=== PATIENT | female | born 1960 | race Caucasian/White ===

== ENCOUNTER 2018-04-19 21:04 | Emergency (ER) | payer OTHER, MEDICARE ==
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
[2018-04-19 21:56] LABS: ANION GAP 11.8; CHLORIDE,CL 102 mmol/L (101-111); SODIUM,NA 139 mmol/L (135-145)
[2018-04-19] MEDS: diphenhydrAMINE 50 MG/ML SDV IVPUSH ONE (21:56)
[2018-04-19] MEDS: HYDROmorphone 1 MG/ML Syringe IVPUSH ONE (21:59)
[2018-04-19] MEDS: Promethazine 25 MG/ML SDV IM ONE (22:01)
[2018-04-19] MEDS: Sodium Chloride 0.9% 1,000 ML IV ONE (22:01)
[2018-04-19 23:28] VITALS: BP 125/82
== END 2018-04-19 23:21 | disposition home or self-care (01) ==
LOC: DL.ED 21:04
DX: G43.909 Migraine, unspecified, not intractable, without status migrainosus (principal); F43.10 Post-traumatic stress disorder, unspecified; Z88.5 Allergy status to narcotic agent; Z79.899 Other long term (current) drug therapy; Z72.820 Sleep deprivation; Z88.8 Allergy status to other drugs, medicaments and biological substances
CPT/HCPCS: 36415; 80053; 85025; 96361; 96372; 96374; 96375; 99283; J1170; J1200; J2550; J7030

== ENCOUNTER 2018-05-04 21:11 | Emergency (ER) | payer OTHER, MEDICARE ==
[2018-05-04 22:31] VITALS: BP 105/62
[2018-05-04] MEDS ORDERED: Promethazine 25 MG/ML SDV IM ONE (23:30)
[2018-05-04] MEDS ORDERED: Ketorolac 30 MG/ML SDV IVPUSH ONE (23:30)
[2018-05-04] MEDS ORDERED: Sodium Chloride 0.9% 1,000 ML IV ONE (23:30)
[2018-05-04] MEDS ORDERED: diphenhydrAMINE 50 MG/ML SDV IVPUSH ONE (23:30)
[2018-05-05] MEDS ORDERED: HYDROmorphone 1 MG/ML Syringe IVPUSH ONE (00:13)
[2018-05-05] MEDS ORDERED: HYDROmorphone 0.5 MG/0.5 ML Syringe ONE (00:23)
--- NOTE | 2018-05-05 00:49 | EDM.PDOC ---
ED HPI GENERAL MEDICAL PROBLEM - General Chief Complaint: Headache Stated Complaint: MIGRAINE, NOT SLEEPING [id number] Time Seen by Provider: 05/04/18 23:24 Source of Information: Reports: Patient History Limitations: Reports: No Limitations - History of Present Illness INITIAL COMMENTS - FREE TEXT/NARRATIVE: headache past 3 days, hasn't slept. Similar to previous migraines. States tried benadryl for sleep but didnt help. last dose 2-3 days ago. Long standing hx migraines since age 20. Has been seen by neurology. Receives Botox for headache , Due 05/29. Reports they increase towards time of next shot. Nausea, pain behind left eye. No blurring of vision, light and sound sensitive. 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(s) Left Anterior Frontal Headache Pain Score (Numeric/FACES): 10 - Related Data Allergies Allergy/AdvReac Type Severity Reaction Status Date / Time codeine Allergy Delusions Verified 05/04/18 22:21 sumatriptan [From Imitrex] Allergy Other Verified 05/04/18 22:21 sumatriptan succinate Allergy Other Verified 05/04/18 22:21 [From Imitrex] topiramate Allergy Other Verified 05/04/18 22:21 Home Meds: Home Meds ClonazePAM [KlonoPIN] 1 mg PO DAILY 08/28/15 [History] DULoxetine [Cymbalta] 60 mg PO DAILY 08/28/15 [History] Gabapentin [Neurontin] 300 mg PO TID 08/28/15 [History] Hydrocodone/Acetaminophen [Hydrocodon-Acetaminophn 10-325] 1 tab PO Q8HR PRN [History] fentaNYL [Duragesic] 75 mcg TRDERM ASDIRECTED 08/28/15 [History] traZODone 150 mg PO BEDTIME 08/28/15 [History] Cyanocobalamin (Vitamin B-12) [Cyanocobalamin Injection] 1,000 mcg INJECT ASDIRECTED 08/29/15 [History] Loratadine 10 mg PO DAILY 08/29/15 [History] PARoxetine [Paxil] 20 mg PO DAILY 08/29/15 [History] Promethazine [Phenergan] 25 mg PO Q6HR PRN 08/29/15 [History] Sennosides/Docusate Sodium [Senna S Tablet] 4 tab PO DAILY 08/29/15 [History] Past Medical History HEENT History: Reports: Impaired Vision Respiratory History: Reports: Other (See Below) Other Respiratory History: Night hypoxia. She is on a continuous O2 at 3 LPM via [place] Musculoskeletal History: Reports: Back Pain, Chronic Neurological History: Reports: Cerebral Aneurysms, Migraines Psychiatric History: Reports: Anxiety, Depression, PTSD - Past Surgical History Musculoskeletal Surgical History: Reports: Shoulder Surgery Social & Family History - Family History Family Medical History: Noncontributory - Tobacco Use Smoking Status *Q: Current Every Day Smoker Years of Tobacco use: 43 Packs/Tins Daily: 0.5 Used Tobacco, but Quit: No Second Hand Smoke Exposure: Yes - Caffeine Use Caffeine Use: Reports: Soda - Recreational Drug Use Recreational Drug Use: No ED ROS GENERAL - Review of Systems Review Of Systems: ROS reveals no pertinent complaints other than HPI. - Physical Exam Exam: See Below Exam Limited By: No Limitations General Appearance: Alert, Mild Distress Eye Exam: Bilateral Eye: EOMI, PERRL Ears: Normal External Exam, Hearing Loss (bilateral hearing aids) Nose: Normal Inspection Throat/Mouth: Normal Inspection, Normal Lips, Normal Gums Head Exam: Atraumatic, Normocephalic Neck: Normal Inspection Respiratory/Chest: No Respiratory Distress, Lungs Clear, Normal Breath Sounds Cardiovascular: Normal Peripheral Pulses, Regular Rate, Rhythm GI/Abdominal: Normal Bowel Sounds, Soft, Non-Tender, No Organomegaly Neuro Exam (Abbreviated): Alert, Oriented, Normal Cognition, Normal Gait, Normal Reflexes, No Motor/Sensory Deficits Back Exam: Normal Inspection Extremities: Normal Inspection Psychiatric: Normal Affect Skin Exam: Warm, Dry, Normal Color Course - Vital Signs Last Recorded V/S: Last Vital Signs Temp 98.2 F 05/04/18 22:27 Pulse 114 H 05/04/18 22:27 Resp 18 05/04/18 22:27 BP 105/62 05/04/18 22:27 Pulse Ox 94 L 05/04/18 22:27 - Orders/Labs/Meds Meds: Medications Discontinued Medications Generic Name Dose Route Start Last Admin Trade Name Freq PRN Reason Stop Dose Admin Diphenhydramine HCl 25 mg 05/04/18 23:30 05/04/18 23:48 Benadryl IVPUSH 05/04/18 23:31 25 mg ONETIME ONE Administration Hydromorphone HCl 1 mg 05/05/18 00:13 05/05/18 00:26 Dilaudid IVPUSH 05/05/18 00:14 1 mg ONETIME ONE Administration Hydromorphone HCl Confirm 05/05/18 00:23 05/05/18 00:28 Dilaudid Administered 05/05/18 00:24 Not Given Dose 1 mg .ROUTE .STK-MED ONE Sodium Chloride 1,000 mls @ 999 mls/hr 05/04/18 23:30 05/04/18 23:44 Normal Saline IV 05/05/18 00:30 999 mls/hr .BOLUS ONE Administration Ketorolac Tromethamine 30 mg 05/04/18 23:30 05/04/18 23:42 Toradol IVPUSH 05/04/18 23:31 30 mg ONETIME ONE Administration Promethazine HCl 25 mg 05/04/18 23:30 05/04/18 23:46 Phenergan IM 05/04/18 23:31 25 mg ONETIME ONE Administration Departure - Departure Time of Disposition: 00:42 Disposition: Home, Self-Care 01 Condition: Good Clinical Impression: Migraine, PTSD (post-traumatic stress disorder) - Discharge Information *PRESCRIPTION DRUG MONITORING PROGRAM REVIEWED*: Yes *COPY OF PRESCRIPTION DRUG MONITORING REPORT IN PATIENT BARRY: Yes Instructions: Migraine Headache, [id number] Additional Instructions: rest follow up with primary care this week
== END 2018-05-05 00:55 | disposition home or self-care (01) ==
LOC: DL.ED 21:11
DX: G43.909 Migraine, unspecified, not intractable, without status migrainosus (principal); F43.10 Post-traumatic stress disorder, unspecified; Z79.899 Other long term (current) drug therapy; F17.210 Nicotine dependence, cigarettes, uncomplicated; Z88.5 Allergy status to narcotic agent
CPT/HCPCS: 96361; 96372; 96374; 96375; 99282; 99283; J1170; J1200; J1885; J2550; J7030

== ENCOUNTER 2018-11-16 21:02 | Emergency (ER) | payer OTHER, MEDICARE ==
[2018-11-16 21:37] VITALS: BP 114/57
--- NOTE | 2018-11-16 21:44 | EDM.PDOC ---
ED HPI GENERAL MEDICAL PROBLEM - General Chief Complaint: Headache Stated Complaint: MIGRAINE [id number] Time Seen by Provider: 11/16/18 21:44 Source of Information: Reports: Patient - History of Present Illness INITIAL COMMENTS - FREE TEXT/NARRATIVE: Pt to ER with c/o migraine headache. Patient states this is the 7th day she has had the headache. She states she generally uses hydrocodone for the headaches and this has not been helping. Patient denies N/V/D, fever or chills, cough. She states this headache is not different than her usual headaches, only the fact that she cannot get it to go away. Patient states she recently returned from [place] where she had been for a month. She feels the climate change is to blame for the headache. Patient denies feeling as if she wants to hurt herself, as reported by [place] [facility]. 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 Medication(s) (hydrocodone) - Related Data Allergies Allergy/AdvReac Type Severity Reaction Status Date / Time codeine Allergy Delusions Verified 11/16/18 21:17 sumatriptan [From Imitrex] Allergy Other Verified 11/16/18 21:17 sumatriptan succinate Allergy Other Verified 11/16/18 21:17 [From Imitrex] topiramate Allergy Other Verified 11/16/18 21:17 Home Meds: Home Meds ClonazePAM [KlonoPIN] 1 mg PO BID 08/28/15 [History] Gabapentin [Neurontin] 300 mg PO TID 08/28/15 [History] Hydrocodone/Acetaminophen [Hydrocodon-Acetaminophn 10-325] 1 tab PO Q8HR PRN [History] traZODone 300 mg PO BEDTIME 08/28/15 [History] Loratadine 10 mg PO DAILY 08/29/15 [History] Promethazine [Phenergan] 25 mg PO Q6HR PRN 08/29/15 [History] Sennosides/Docusate Sodium [Senna S Tablet] 4 tab PO DAILY 08/29/15 [History] Albuterol Sulfate [Proair Hfa] 2 puff INH Q4H PRN 11/16/18 [History] DULoxetine [Cymbalta] 60 mg PO DAILY 11/16/18 [History] Polyethylene Glycol 3350 [MiraLAX] 17 gram PO DAILY PRN 11/16/18 [History] QUEtiapine Fumarate [Quetiapine Fumarate ER] 200 mg PO BEDTIME 11/16/18 [History ] Tolterodine [Detrol] 2 mg PO DAILY 11/16/18 [History] Past Medical History HEENT History: Reports: Impaired Vision Respiratory History: Reports: Other (See Below) Other Respiratory History: Night hypoxia. She is on a continuous O2 at 3 LPM via [place] Musculoskeletal History: Reports: Back Pain, Chronic Neurological History: Reports: Cerebral Aneurysms, Migraines Psychiatric History: Reports: Anxiety, Depression, PTSD - Past Surgical History Musculoskeletal Surgical History: Reports: Shoulder Surgery Social & Family History - Family History Family Medical History: Noncontributory - Caffeine Use Caffeine Use: Reports: Soda ED ROS GENERAL - Review of Systems Review Of Systems: ROS reveals no pertinent complaints other than HPI. - Physical Exam Exam: See Below Exam Limited By: No Limitations General Appearance: Alert, WD/WN, Mild Distress Eye Exam: Bilateral Eye: EOMI, Normal Inspection Ears: Normal External Exam, Hearing Grossly Normal Nose: Normal Inspection Throat/Mouth: Normal Inspection, Normal Voice, No Airway Compromise Head Exam: Atraumatic, Normocephalic Neck: Normal Inspection, Supple, Non-Tender, Full Range of Motion Respiratory/Chest: No Respiratory Distress, Lungs Clear, Normal Breath Sounds, No Accessory Muscle Use, Chest Non-Tender Cardiovascular: Normal Peripheral Pulses, Regular Rate, Rhythm, No Edema, No Gallop, No JVD, No Murmur, No Rub GI/Abdominal: Normal Bowel Sounds, Soft, Non-Tender (Female) Exam: Deferred Rectal (Female) Exam: Deferred Neuro Exam (Abbreviated): Alert, Oriented, CN II-XII Intact, Normal Cognition, Normal Gait, Normal Reflexes, No Motor/Sensory Deficits Back Exam: Normal Inspection, Full Range of Motion, NT Extremities: Normal Inspection, Normal Range of Motion, Non-Tender, No Pedal Edema, Normal Capillary Refill Psychiatric: Normal Mood, Flat Affect Skin Exam: Warm, Dry, Intact, Normal Color, No Rash Course - Vital Signs Last Recorded V/S: Last Vital Signs Temp 98.2 F 11/16/18 21:15 Pulse 121 H 11/16/18 21:15 Resp 16 11/16/18 21:15 BP 114/57 L 11/16/18 21:15 Pulse Ox 95 11/16/18 21:15 - Orders/Labs/Meds Meds: Medications Discontinued Medications Generic Name Dose Route Start Last Admin Trade Name Joyce PRN Reason Stop Dose Admin Hydromorphone HCl 1 mg 11/16/18 21:51 11/16/18 22:08 Dilaudid IM 11/16/18 21:52 1 mg ONETIME ONE Administration Ondansetron HCl 4 mg 11/16/18 21:51 11/16/18 22:08 Zofran Odt PO 11/16/18 21:52 4 mg ONETIME ONE Administration - Re-Assessments/Exams Free Text/Narrative Re-Assessment/Exam: 11/16/18 23:12 Patient states her headache is starting to improve and she would like to go home and rest. Patient was discharged home. Departure - Departure Time of Disposition: 22:34 Disposition: Home, Self-Care 01 Condition: Fair Clinical Impression: Migraine, PTSD (post-traumatic stress disorder) - Discharge Information *PRESCRIPTION DRUG MONITORING PROGRAM REVIEWED*: No *COPY OF PRESCRIPTION DRUG MONITORING REPORT IN PATIENT BARRY: No Instructions: Migraine Headache, [id number] Forms: ED Department Discharge Additional Instructions: Drink plenty of fluids Rest in a dark room Follow up with your primary care facility
[2018-11-16] MEDS ORDERED: HYDROmorphone 1 MG/ML Syringe IM ONE (21:51)
[2018-11-16] MEDS ORDERED: Ondansetron 4 MG Tab.DIS PO ONE (21:51)
== END 2018-11-16 22:38 | disposition home or self-care (01) ==
LOC: DL.ED 21:02
DX: G43.909 Migraine, unspecified, not intractable, without status migrainosus (principal); F41.9 Anxiety disorder, unspecified; F32.9 Major depressive disorder, single episode, unspecified; F43.10 Post-traumatic stress disorder, unspecified; Z88.5 Allergy status to narcotic agent; Z88.8 Allergy status to other drugs, medicaments and biological substances; Z79.899 Other long term (current) drug therapy
CPT/HCPCS: 96372; 99283; A9270; J1170

== ENCOUNTER 2018-11-24 20:23 | Emergency (ER) | payer MEDICARE, OTHER ==
[2018-11-24 20:32] VITALS: BP 167/88
[2018-11-24] MEDS ORDERED: HYDROmorphone 1 MG/ML Syringe IVPUSH ONE (20:44)
[2018-11-24] MEDS ORDERED: Sodium Chloride 0.9% 1,000 ML IV ONE (20:44)
[2018-11-24] MEDS ORDERED: Ondansetron 4 MG/2 ML SDV IV ONE (20:44)
--- NOTE | 2018-11-24 21:27 | EDM.PDOC ---
ED HPI GENERAL MEDICAL PROBLEM - General Chief Complaint: Headache Stated Complaint: MIRGRAINE Time Seen by Provider: 11/24/18 20:30 Source of Information: Reports: Patient, RN Notes Reviewed History Limitations: Reports: No Limitations - History of Present Illness INITIAL COMMENTS - FREE TEXT/NARRATIVE: C/o migraine headache above left eye, same as usual. Started this am while receiving botox injection. Slight nausea. No vomiting. Tried hydrocodone without improvement. Light sensitive. No blurring of vision, No weakness. Headache Pain Score (Numeric/FACES): 9 - Related Data Allergies Allergy/AdvReac Type Severity Reaction Status Date / Time codeine Allergy Delusions Verified 11/24/18 20:32 sumatriptan [From Imitrex] Allergy Other Verified 11/24/18 20:32 sumatriptan succinate Allergy Other Verified 11/24/18 20:32 [From Imitrex] topiramate Allergy Other Verified 11/24/18 20:32 Home Meds: Home Meds ClonazePAM [KlonoPIN] 1 mg PO BID 08/28/15 [History] Gabapentin [Neurontin] 300 mg PO TID 08/28/15 [History] Hydrocodone/Acetaminophen [Hydrocodon-Acetaminophn 10-325] 1 tab PO Q8HR PRN [History] traZODone 300 mg PO BEDTIME 08/28/15 [History] Loratadine 10 mg PO DAILY 08/29/15 [History] Promethazine [Phenergan] 25 mg PO Q6HR PRN 08/29/15 [History] Sennosides/Docusate Sodium [Senna S Tablet] 4 tab PO DAILY 08/29/15 [History] Albuterol Sulfate [Proair Hfa] 2 puff INH Q4H PRN 11/16/18 [History] DULoxetine [Cymbalta] 60 mg PO DAILY 11/16/18 [History] Polyethylene Glycol 3350 [MiraLAX] 17 gram PO DAILY PRN 11/16/18 [History] QUEtiapine Fumarate [Quetiapine Fumarate ER] 200 mg PO BEDTIME 11/16/18 [History ] Tolterodine [Detrol] 2 mg PO DAILY 11/16/18 [History] Past Medical History HEENT History: Reports: Impaired Vision Respiratory History: Reports: Other (See Below) Other Respiratory History: Night hypoxia. She is on a continuous O2 at 3 LPM via [place] Musculoskeletal History: Reports: Back Pain, Chronic Neurological History: Reports: Cerebral Aneurysms, Migraines Psychiatric History: Reports: Anxiety, Depression, PTSD - Past Surgical History Musculoskeletal Surgical History: Reports: Shoulder Surgery Social & Family History - Family History Family Medical History: Noncontributory - Tobacco Use Smoking Status *Q: Former Smoker Used Tobacco, but Quit: Yes Month/Year Tobacco Last Used: 08/2018 Second Hand Smoke Exposure: Yes - Caffeine Use Caffeine Use: Reports: None - Recreational Drug Use Recreational Drug Use: No ED ROS GENERAL - Review of Systems Review Of Systems: ROS reveals no pertinent complaints other than HPI. - Physical Exam Exam: See Below Exam Limited By: No Limitations General Appearance: Alert, Mild Distress, Obese Eye Exam: Bilateral Eye: EOMI, Normal Fundi, PERRL Ears: Hearing Loss, Other (bilateral hearing aides, moderate cerumen right ear. ) Nose: Normal Inspection Throat/Mouth: Normal Voice, Other (dry mucus membranes) Head Exam: Atraumatic, Normocephalic Neck: Normal Inspection, Full Range of Motion Respiratory/Chest: No Respiratory Distress Cardiovascular: Normal Peripheral Pulses, Regular Rate, Rhythm GI/Abdominal: Normal Bowel Sounds, Soft Neuro Exam (Abbreviated): Alert, Oriented, CN II-XII Intact, Normal Cognition, No Motor/Sensory Deficits Extremities: Normal Inspection Psychiatric: Normal Affect, Normal Mood Skin Exam: Warm, Dry, Intact, Pallor Course - Vital Signs Last Recorded V/S: Last Vital Signs Temp 97.9 F 11/24/18 20:27 Pulse 104 H 11/24/18 20:27 Resp 17 11/24/18 20:27 BP 167/88 H 11/24/18 20:27 Pulse Ox 94 L 11/24/18 20:27 - Orders/Labs/Meds Orders: Active Orders 24 hr Category Date Time Status Sodium Chloride 0.9% [Normal Saline] 1,000 ml Med 11/24/18 20:44 Active IV .BOLUS Medication Orders Sodium Chloride (Normal Saline) 1,000 mls @ 999 mls/hr IV .BOLUS ONE Stop: 11/24/18 21:44 Last Admin: 11/24/18 20:52 Dose: 999 mls/hr Meds: Medications Generic Name Dose Route Start Last Admin Trade Name Freq PRN Reason Stop Dose Admin Sodium Chloride 1,000 mls @ 999 mls/hr 11/24/18 20:44 11/24/18 20:52 Normal Saline IV 11/24/18 21:44 999 mls/hr .BOLUS ONE Administration Discontinued Medications Generic Name Dose Route Start Last Admin Trade Name Joyce PRN Reason Stop Dose Admin Hydromorphone HCl 1 mg 11/24/18 20:44 11/24/18 20:52 Dilaudid IVPUSH 11/24/18 20:45 1 mg ONETIME ONE Administration Ondansetron HCl 4 mg 11/24/18 20:44 11/24/18 20:52 Zofran IV 11/24/18 20:45 4 mg ONETIME ONE Administration Departure - Departure Time of Disposition: 21:23 Disposition: Home, Self-Care 01 Condition: Good Clinical Impression: Migraine - Discharge Information *PRESCRIPTION DRUG MONITORING PROGRAM REVIEWED*: Not Applicable *COPY OF PRESCRIPTION DRUG MONITORING REPORT IN PATIENT BARRY: Not Applicable Instructions: Migraine Headache, [id number] Forms: ED Department Discharge Additional Instructions: rest increase fluids follow up as needed home medications as ordered by primary care provider - My Orders Last 24 Hours: My Active Orders 11/24/18 20:44 Sodium Chloride 0.9% [Normal Saline] 1,000 ml IV .BOLUS - Assessment/Plan Last 24 Hours: My Active Orders 11/24/18 20:44 Sodium Chloride 0.9% [Normal Saline] 1,000 ml IV .BOLUS
== END 2018-11-24 21:30 | disposition home or self-care (01) ==
LOC: DL.ED 20:23
DX: G43.909 Migraine, unspecified, not intractable, without status migrainosus (principal); F41.9 Anxiety disorder, unspecified; F32.9 Major depressive disorder, single episode, unspecified; Z79.899 Other long term (current) drug therapy; Z88.5 Allergy status to narcotic agent; Z88.8 Allergy status to other drugs, medicaments and biological substances; Z87.891 Personal history of nicotine dependence
CPT/HCPCS: 96361; 96374; 96375; 99282-25; J1170; J2405; J7030

== ENCOUNTER 2018-11-29 19:59 | Emergency (ER) | payer MEDICARE, OTHER ==
[2018-11-29 20:07] VITALS: BP 117/72; PULSE 115
[2018-11-29] MEDS ORDERED: Ondansetron 4 MG/2 ML SDV IV ONE (20:30)
[2018-11-29] MEDS ORDERED: Famotidine 20 MG/2 ML SDV IVPUSH ONE (20:30)
[2018-11-29] MEDS ORDERED: Sodium Chloride 0.9% 1,000 ML IV ONE (20:30)
[2018-11-29] MEDS ORDERED: HYDROmorphone 1 MG/ML Syringe IVPUSH ONE (20:34)
[2018-11-29 21:15] LABS: ANION GAP 12.3; CHLORIDE,CL 105 mmol/L (101-111); SODIUM,NA 137 mmol/L (135-145)
--- NOTE | 2018-11-29 21:36 | EDM.PDOC ---
ED HPI GENERAL MEDICAL PROBLEM - General Chief Complaint: Headache Stated Complaint: MIGRAINE, STOMACH PAINS Time Seen by Provider: 11/29/18 20:15 Source of Information: Reports: Patient History Limitations: Reports: No Limitations - History of Present Illness INITIAL COMMENTS - FREE TEXT/NARRATIVE: ED with c/o migraine headache. Onset on awakening this am. yesterday, multiple diarrhea stools and some nausea. Limited oral intake yesterday,tolerating small amounts today. Headache usual for migraine behing, right eye. Sensitive to light. Stated unsure if took hydrocodone so did not want to take additional. Seen at [facility] today and told to go home and rest. Frontal Headache Pain Score (Numeric/FACES): 8 - Related Data Allergies Allergy/AdvReac Type Severity Reaction Status Date / Time codeine Allergy Delusions Verified 11/29/18 20:11 sumatriptan [From Imitrex] Allergy Other Verified 11/29/18 20:11 sumatriptan succinate Allergy Other Verified 11/29/18 20:11 [From Imitrex] topiramate Allergy Other Verified 11/29/18 20:11 Home Meds: Home Meds ClonazePAM [KlonoPIN] 1 mg PO BID 08/28/15 [History] Gabapentin [Neurontin] 300 mg PO TID 08/28/15 [History] Hydrocodone/Acetaminophen [Hydrocodon-Acetaminophn 10-325] 1 tab PO Q8HR PRN [History] traZODone 300 mg PO BEDTIME 08/28/15 [History] Loratadine 10 mg PO DAILY 08/29/15 [History] Promethazine [Phenergan] 25 mg PO Q6HR PRN 08/29/15 [History] Sennosides/Docusate Sodium [Senna S Tablet] 4 tab PO DAILY 08/29/15 [History] Albuterol Sulfate [Proair Hfa] 2 puff INH Q4H PRN 11/16/18 [History] DULoxetine [Cymbalta] 60 mg PO DAILY 11/16/18 [History] Polyethylene Glycol 3350 [MiraLAX] 17 gram PO DAILY PRN 11/16/18 [History] QUEtiapine Fumarate [Quetiapine Fumarate ER] 200 mg PO BEDTIME 11/16/18 [History ] Tolterodine [Detrol] 2 mg PO DAILY 11/16/18 [History] Past Medical History HEENT History: Reports: Impaired Vision Respiratory History: Reports: Other (See Below) Other Respiratory History: Night hypoxia. She is on a continuous O2 at 3 LPM via [place] Musculoskeletal History: Reports: Back Pain, Chronic Neurological History: Reports: Cerebral Aneurysms, Migraines Psychiatric History: Reports: Anxiety, Depression, PTSD - Past Surgical History Musculoskeletal Surgical History: Reports: Shoulder Surgery Social & Family History - Family History Family Medical History: Noncontributory - Tobacco Use Years of Tobacco use: 40 - Caffeine Use Caffeine Use: Reports: None ED ROS GENERAL - Review of Systems Review Of Systems: ROS reveals no pertinent complaints other than HPI. - Physical Exam Exam: See Below Exam Limited By: No Limitations General Appearance: Alert, Mild Distress, Obese Eye Exam: Bilateral Eye: EOMI, PERRL Ears: Normal External Exam, Normal TMs, Hearing Loss (bilateral hearing aids) Nose: Normal Inspection Throat/Mouth: Normal Inspection Head Exam: Atraumatic, Normocephalic Neck: Normal Inspection, Full Range of Motion Respiratory/Chest: No Respiratory Distress, Lungs Clear, Normal Breath Sounds Cardiovascular: Regular Rate, Rhythm GI/Abdominal: Normal Bowel Sounds, Soft, Non-Tender Neuro Exam (Abbreviated): Alert, Oriented, CN II-XII Intact, Normal Cognition Extremities: Normal Inspection Psychiatric: Flat Affect Skin Exam: Warm, Dry, Intact, Pallor Course - Vital Signs Last Recorded V/S: Last Vital Signs Temp 98.2 F 11/29/18 20:05 Pulse 115 H 11/29/18 20:05 Resp 18 11/29/18 20:05 BP 117/72 11/29/18 20:05 Pulse Ox 96 11/29/18 20:05 - Orders/Labs/Meds Labs: Laboratory Tests 11/29/18 11/29/18 Range/Units 20:20 20:20 WBC 10.1 H (5.0-10.0) 10^3/uL RBC 4.05 L (4.2-5.4) 10^6/uL Hgb 12.4 D (12.0-16.0) g/dL Hct 37.3 (37.0-47.0) % MCV 92.1 (80-100) fL MCH 30.6 (27.0-34.0) pg MCHC 33.2 (33.0-35.0) g/dL Plt Count 243 (150-450) 10^3/uL Neut % (Auto) 60.8 (42.2-75.2) % Lymph % (Auto) 26.2 (20.5-50.1) % Hill % (Auto) 10.3 H (2-8) % Eos % (Auto) 2.4 (1.0-3.0) % Baso % (Auto) 0.3 (0.0-1.0) % Sodium 137 (135-145) mmol/L Potassium 3.3 L (3.6-5.0) mmol/L Chloride 105 (101-111) mmol/L Carbon Dioxide 23.0 (21.0-31.0) mmol/L Anion Gap 12.3 BUN 6 L (7-18) mg/dL Creatinine 0.8 (0.6-1.3) mg/dL Est Cr Clr Drug Dosing 64.80 mL/min Estimated GFR (MDRD) > 60 BUN/Creatinine Ratio 7.50 Glucose 98 (74-105) mg/dL Calcium 8.2 L (8.4-10.2) mg/dl Total Bilirubin 0.8 (0.2-1.0) mg/dL AST 18 (10-42) IU/L ALT 13 (10-60) IU/L Alkaline Phosphatase 48 (42-121) IU/L Total Protein 6.2 L (6.7-8.2) g/dl Albumin 3.4 (3.2-5.5) g/dl Globulin 2.8 Albumin/Globulin Ratio 1.21 Meds: Medications Discontinued Medications Generic Name Dose Route Start Last Admin Trade Name Joyce PRN Reason Stop Dose Admin Famotidine 20 mg 11/29/18 20:30 11/29/18 20:52 Pepcid IVPUSH 11/29/18 20:31 20 mg ONETIME ONE Administration Hydromorphone HCl 1 mg 11/29/18 20:34 11/29/18 20:59 Dilaudid IVPUSH 11/29/18 20:35 1 mg ONETIME ONE Administration Sodium Chloride 1,000 mls @ 999 mls/hr 11/29/18 20:30 11/29/18 20:51 Normal Saline IV 11/29/18 21:30 999 mls/hr .BOLUS ONE Administration Ondansetron HCl 4 mg 11/29/18 20:30 11/29/18 20:52 Zofran IV 11/29/18 20:31 4 mg ONETIME ONE Administration Departure - Departure Time of Disposition: 21:35 Disposition: Home, Self-Care 01 Condition: Good Clinical Impression: Migraine, Gastroenteritis - Discharge Information *PRESCRIPTION DRUG MONITORING PROGRAM REVIEWED*: Yes *COPY OF PRESCRIPTION DRUG MONITORING REPORT IN PATIENT BARRY: Yes Instructions: Viral Gastroenteritis, Adult, Migraine Headache Forms: ED Department Discharge Additional Instructions: rest fluids home medications as prescribed clinic folow up if not improving
== END 2018-11-29 21:49 | disposition home or self-care (01) ==
LOC: DL.ED 19:59
DX: G43.909 Migraine, unspecified, not intractable, without status migrainosus (principal); K52.9 Noninfective gastroenteritis and colitis, unspecified; F41.9 Anxiety disorder, unspecified; F32.9 Major depressive disorder, single episode, unspecified; Z79.899 Other long term (current) drug therapy; Z88.5 Allergy status to narcotic agent; Z88.8 Allergy status to other drugs, medicaments and biological substances
CPT/HCPCS: 36415; 80053; 85025; 96361; 96374; 96375; 99283; J1170; J2405; J3490; J7030

== ENCOUNTER 2018-12-03 18:06 | Emergency (ER) | payer MEDICARE, OTHER ==
[2018-12-03] MEDS ORDERED: Butorphanol 2 MG/ML SDV IM ONE (18:34)
[2018-12-03] MEDS ORDERED: Promethazine 25 MG/ML SDV IM ONE (18:34)
--- NOTE | 2018-12-03 18:47 | EDM.PDOC ---
ED HPI GENERAL MEDICAL PROBLEM - General Chief Complaint: Headache Stated Complaint: MIGRAINE Time Seen by Provider: 12/03/18 18:41 Source of Information: Reports: Patient History Limitations: Reports: No Limitations - History of Present Illness INITIAL COMMENTS - FREE TEXT/NARRATIVE: c/o recurrent h/o migraine. explained to pt re; legality of pain management. Head Pain Score (Numeric/FACES): 8 - Related Data Allergies Allergy/AdvReac Type Severity Reaction Status Date / Time codeine Allergy Delusions Verified 12/03/18 18:25 sumatriptan [From Imitrex] Allergy Other Verified 12/03/18 18:25 sumatriptan succinate Allergy Other Verified 12/03/18 18:25 [From Imitrex] topiramate Allergy Other Verified 12/03/18 18:25 Home Meds: Home Meds ClonazePAM [KlonoPIN] 1 mg PO BID 08/28/15 [History] Gabapentin [Neurontin] 300 mg PO TID 08/28/15 [History] Hydrocodone/Acetaminophen [Hydrocodon-Acetaminophn 10-325] 1 tab PO Q8HR PRN [History] traZODone 300 mg PO BEDTIME 08/28/15 [History] Loratadine 10 mg PO DAILY 08/29/15 [History] Promethazine [Phenergan] 25 mg PO Q6HR PRN 08/29/15 [History] Sennosides/Docusate Sodium [Senna S Tablet] 4 tab PO DAILY 08/29/15 [History] Albuterol Sulfate [Proair Hfa] 2 puff INH Q4H PRN 11/16/18 [History] DULoxetine [Cymbalta] 60 mg PO DAILY 11/16/18 [History] Polyethylene Glycol 3350 [MiraLAX] 17 gram PO DAILY PRN 11/16/18 [History] QUEtiapine Fumarate [Quetiapine Fumarate ER] 200 mg PO BEDTIME 11/16/18 [History ] Tolterodine [Detrol] 2 mg PO DAILY 11/16/18 [History] Past Medical History HEENT History: Reports: Impaired Vision Respiratory History: Reports: Other (See Below) Other Respiratory History: Night hypoxia. She is on a continuous O2 at 3 LPM via [place] Musculoskeletal History: Reports: Back Pain, Chronic Neurological History: Reports: Cerebral Aneurysms, Migraines Psychiatric History: Reports: Anxiety, Depression, PTSD - Past Surgical History Musculoskeletal Surgical History: Reports: Shoulder Surgery Social & Family History - Family History Family Medical History: Noncontributory - Tobacco Use Smoking Status *Q: Never Smoker - Caffeine Use Caffeine Use: Reports: None - Recreational Drug Use Recreational Drug Use: No ED ROS GENERAL - Review of Systems Review Of Systems: ROS reveals no pertinent complaints other than HPI. - Physical Exam Exam: See Below Exam Limited By: No Limitations General Appearance: Alert, WD/WN, Mild Distress, Other Eye Exam: Bilateral Eye: PERRL (pupils ess ER @ 4mm) Ears: Hearing Grossly Normal Throat/Mouth: Normal Voice, No Airway Compromise Head Exam: Atraumatic Neck: Non-Tender, Full Range of Motion Respiratory/Chest: No Respiratory Distress Cardiovascular: Regular Rate, Rhythm GI/Abdominal: Soft, Non-Tender Neuro Exam (Abbreviated): Alert, Oriented, Normal Cognition, Normal Gait, No Motor/Sensory Deficits Psychiatric: Flat Affect Skin Exam: Warm, Dry, Normal Color Course - Vital Signs Last Recorded V/S: Last Vital Signs Temp 37 C 12/03/18 19:30 Pulse 99 12/03/18 19:30 Resp 18 12/03/18 19:30 BP 145/68 H 12/03/18 19:30 Pulse Ox 95 12/03/18 19:30 - Orders/Labs/Meds Meds: Medications Discontinued Medications Generic Name Dose Route Start Last Admin Trade Name Freq PRN Reason Stop Dose Admin Butorphanol Tartrate 2 mg 12/03/18 18:34 12/03/18 18:45 Stadol IM 12/03/18 18:35 2 mg ONETIME ONE Administration Promethazine HCl 25 mg 12/03/18 18:34 12/03/18 18:45 Phenergan IM 12/03/18 18:35 25 mg ONETIME ONE Administration Departure - Departure Time of Disposition: 19:30 Disposition: Home, Self-Care 01 Condition: Fair Clinical Impression: Migraine, PTSD (post-traumatic stress disorder) - Discharge Information Instructions: Migraine Headache, [id number] Referrals: PCP,None [Primary Care Provider] - Forms: ED Department Discharge Additional Instructions: 1) rest 2) follow up at clinic
[2018-12-03 19:33] VITALS: BP 145/68; PULSE 99
== END 2018-12-03 19:31 | disposition home or self-care (01) ==
LOC: DL.ED 18:06
DX: G43.909 Migraine, unspecified, not intractable, without status migrainosus (principal); F43.10 Post-traumatic stress disorder, unspecified; F41.9 Anxiety disorder, unspecified; F32.9 Major depressive disorder, single episode, unspecified; Z88.5 Allergy status to narcotic agent; Z79.899 Other long term (current) drug therapy
CPT/HCPCS: 96372; 99283; J0595; J2550

== ENCOUNTER 2018-12-13 22:01 | Emergency (ER) | payer MEDICARE, OTHER ==
[2018-12-13] MEDS ORDERED: Sodium Chloride 0.9% 1,000 ML IV ONE (22:38)
[2018-12-13] MEDS ORDERED: Promethazine 25 MG/ML SDV IM ONE (22:38)
[2018-12-13] MEDS ORDERED: Ketorolac 30 MG/ML SDV IM ONE (22:38)
--- NOTE | 2018-12-13 22:45 | EDM.PDOC ---
ED HPI GENERAL MEDICAL PROBLEM - General Chief Complaint: Headache Stated Complaint: MIGRAINE Time Seen by Provider: 12/13/18 22:30 Source of Information: Reports: Patient History Limitations: Reports: No Limitations - History of Present Illness INITIAL COMMENTS - FREE TEXT/NARRATIVE: This 58 yo female patient reports to the ED due to a headache that started at 1400. The patient reports her headache was not relieved by her Hydrocodone. The patient normally sees Dr. Rice for her migraine headaches with her last visit about 2 weeks ago. The patient reports she had a Botox injection 2 weeks ago. This is the patient's 3rd visit in the ED since her injection. The patient reports she has not had any additional treatments. The patient reports she has been seeing the [place] for [place] associated with her headaches. Onset: Today Onset Date: 12/13/18 Onset Time: 14:00 Duration: Constant Location: Reports: Head Quality: Reports: Ache Severity: Severe Improves with: Reports: None Worsens with: Reports: None Context: Reports: Other Associated Symptoms: Reports: Headaches Treatments GRANTS ADMINISTRATOR: Reports: Other Medication(s) (Hydrocodone) Left Frontal Headache Pain Score (Numeric/FACES): 10 - Related Data Allergies Allergy/AdvReac Type Severity Reaction Status Date / Time codeine Allergy Delusions Verified 12/13/18 22:20 sumatriptan [From Imitrex] Allergy Other Verified 12/13/18 22:20 sumatriptan succinate Allergy Other Verified 12/13/18 22:20 [From Imitrex] topiramate Allergy Other Verified 12/13/18 22:20 Home Meds: Home Meds ClonazePAM [KlonoPIN] 1 mg PO BID 08/28/15 [History] Gabapentin [Neurontin] 300 mg PO TID 08/28/15 [History] Hydrocodone/Acetaminophen [Hydrocodon-Acetaminophn 10-325] 1 tab PO Q8HR PRN [History] traZODone 300 mg PO BEDTIME 08/28/15 [History] Loratadine 10 mg PO DAILY 08/29/15 [History] Promethazine [Phenergan] 25 mg PO Q6HR PRN 08/29/15 [History] Sennosides/Docusate Sodium [Senna S Tablet] 4 tab PO DAILY 08/29/15 [History] Albuterol Sulfate [Proair Hfa] 2 puff INH Q4H PRN 11/16/18 [History] DULoxetine [Cymbalta] 60 mg PO DAILY 11/16/18 [History] Polyethylene Glycol 3350 [MiraLAX] 17 gram PO DAILY PRN 11/16/18 [History] QUEtiapine Fumarate [Quetiapine Fumarate ER] 200 mg PO BEDTIME 11/16/18 [History ] Tolterodine [Detrol] 2 mg PO DAILY 11/16/18 [History] Past Medical History HEENT History: Reports: Impaired Vision Respiratory History: Reports: Other (See Below) Other Respiratory History: Night hypoxia. She is on a continuous O2 at 3 LPM via [place] Musculoskeletal History: Reports: Back Pain, Chronic Neurological History: Reports: Cerebral Aneurysms, Migraines Psychiatric History: Reports: Anxiety, Depression, PTSD - Past Surgical History Musculoskeletal Surgical History: Reports: Shoulder Surgery Social & Family History - Family History Family Medical History: Noncontributory - Tobacco Use Smoking Status *Q: Current Status Unknown - Caffeine Use Caffeine Use: Reports: Energy Drinks - Recreational Drug Use Recreational Drug Use: No ED ROS GENERAL - Review of Systems Review Of Systems: ROS reveals no pertinent complaints other than HPI. - Physical Exam Exam: See Below Exam Limited By: No Limitations General Appearance: Alert, WD/WN, Moderate Distress Eye Exam: Bilateral Eye: EOMI, Normal Inspection, PERRL Ears: Normal External Exam, Normal Canal, Hearing Grossly Normal, Normal TMs Nose: Normal Inspection, Normal Mucosa, No Blood Throat/Mouth: Normal Inspection, Normal Lips, Normal Teeth, Normal Gums, Normal Oropharynx, Normal Voice, No Airway Compromise Head Exam: Atraumatic, Normocephalic Neck: Normal Inspection, Supple, Non-Tender, Full Range of Motion Respiratory/Chest: No Respiratory Distress, Lungs Clear, Normal Breath Sounds, No Accessory Muscle Use, Chest Non-Tender Cardiovascular: Normal Peripheral Pulses, Regular Rate, Rhythm, No Edema, No Gallop, No JVD, No Murmur, No Rub GI/Abdominal: Normal Bowel Sounds, Soft, Non-Tender, No Organomegaly, No Distention, No Abnormal Bruit, No Mass (Female) Exam: Deferred Rectal (Female) Exam: Deferred Neuro Exam (Abbreviated): Alert, Oriented, CN II-XII Intact, Normal Cognition, Normal Gait, Normal Reflexes, No Motor/Sensory Deficits Back Exam: Normal Inspection, Full Range of Motion, NT Extremities: Normal Inspection, Normal Range of Motion, Non-Tender, No Pedal Edema, Normal Capillary Refill Psychiatric: Normal Affect, Normal Mood Skin Exam: Warm, Dry, Intact, Normal Color, No Rash Course - Vital Signs Last Recorded V/S: Last Vital Signs Temp 37.1 C 12/13/18 23:19 Pulse 99 12/13/18 23:19 Resp 19 12/13/18 23:19 BP 127/73 12/13/18 23:19 Pulse Ox 94 L 12/13/18 23:19 - Orders/Labs/Meds Orders: Active Orders 24 hr Category Date Time Status Sodium Chloride 0.9% [Normal Saline] 1,000 ml Med 12/13/18 22:38 Active IV .BOLUS Medication Orders Sodium Chloride (Normal Saline) 1,000 mls @ 999 mls/hr IV .BOLUS ONE Stop: 12/13/18 23:38 Last Admin: 12/13/18 22:51 Dose: 999 mls/hr Meds: Medications Generic Name Dose Route Start Last Admin Trade Name Freq PRN Reason Stop Dose Admin Sodium Chloride 1,000 mls @ 999 mls/hr 12/13/18 22:38 12/13/18 22:51 Normal Saline IV 12/13/18 23:38 999 mls/hr .BOLUS ONE Administration Discontinued Medications Generic Name Dose Route Start Last Admin Trade Name Freq PRN Reason Stop Dose Admin Hydromorphone HCl 1 mg 12/13/18 23:20 12/13/18 23:25 Dilaudid IVPUSH 12/13/18 23:21 1 mg ONETIME ONE Administration Ketorolac Tromethamine 30 mg 12/13/18 22:38 12/13/18 22:49 Toradol IM 12/13/18 22:39 30 mg ONETIME ONE Administration Promethazine HCl 25 mg 12/13/18 22:38 12/13/18 22:48 Phenergan IM 12/13/18 22:39 25 mg ONETIME ONE Administration - Re-Assessments/Exams Free Text/Narrative Re-Assessment/Exam: 12/13/18 22:47 The patient was advised that she would be getting a Phenergan injection for the nausea, IV fluids and IV Toradol. The patient reports the Toradol does not help her at all with her headaches. The patient was advised that the Toradol is a pain medication that is not associated with rebound headaches. Her treatment would be initiated with the above medications. 12/13/18 23:21 Reassessment revealed that the patient reports her headache was even worse than when she got to the ED. An order was placed for 1 mg of Dilaudid IV to be given. The patient was again advised to [facility]. Departure - Departure Time of Disposition: 23:35 Disposition: Home, Self-Care 01 Condition: Fair Clinical Impression: Migraine - Discharge Information *PRESCRIPTION DRUG MONITORING PROGRAM REVIEWED*: Yes *COPY OF PRESCRIPTION DRUG MONITORING REPORT IN PATIENT BARRY: Yes Instructions: Migraine Headache, [id number] Forms: ED Department Discharge, ED Return to Work/School Form Care Plan Goals: The patient was advised of the examination results during the visit. The patient was initially given IV fluids, IV Toradol and IM Phenergan with worsening of the patient's headache. The patient was then given a dose of IV Dilaudid. The patient was advised to contact Dr. Rice's office tomorrow to report the continued difficulties with migraine headaches. If the patient has any additional symptoms or concerns, the patient should follow-up with her primary care facility or return to the emergency department. - My Orders Last 24 Hours: My Active Orders 12/13/18 22:38 Sodium Chloride 0.9% [Normal Saline] 1,000 ml IV .BOLUS - Assessment/Plan Last 24 Hours: My Active Orders 12/13/18 22:38 Sodium Chloride 0.9% [Normal Saline] 1,000 ml IV .BOLUS
[2018-12-13] MEDS ORDERED: HYDROmorphone 1 MG/ML Syringe IVPUSH ONE (23:20)
[2018-12-14 00:15] VITALS: BP 128/86
== END 2018-12-14 00:12 | disposition home or self-care (01) ==
LOC: DL.ED 22:01
DX: G43.909 Migraine, unspecified, not intractable, without status migrainosus (principal); F41.9 Anxiety disorder, unspecified; F32.9 Major depressive disorder, single episode, unspecified; Z88.5 Allergy status to narcotic agent; Z88.8 Allergy status to other drugs, medicaments and biological substances; Z79.899 Other long term (current) drug therapy
CPT/HCPCS: 96361; 96372; 96374; 96375; 99283-25; J1170; J1885; J2550; J7030

== ENCOUNTER 2019-01-20 08:01 | Day surgery (SDC) | payer OTHER, MEDICARE ==
[~2019-01-20 08:01] MED LIST: Midazolam 1 MG/ML 2 ML SDV ONE; fentaNYL 100 MCG/2 ML SDV ONE
[2019-01-20] MEDS ORDERED: fentaNYL 100 MCG/2 ML SDV IV ONE ×5 (08:02→08:59)
[2019-01-20] MEDS ORDERED: Midazolam 1 MG/ML 2 ML SDV IV ONE ×10 (08:02→08:57)
[2019-01-20] MEDS ORDERED: Dextrose 5%-0.45% NaCl 1,000 ML IV SCH (08:30)
[2019-01-20] MEDS ORDERED: fentaNYL 100 MCG/2 ML SDV ONE (08:53)
[2019-01-20] MEDS ORDERED: Midazolam 1 MG/ML 2 ML SDV ONE (08:53)
[2019-01-20 11:37] VITALS: BP 114/66
--- NOTE | 2019-01-21 08:37 | OR ---
DATE: 01/20/2019 PREOPERATIVE DIAGNOSIS: Screening colonoscopy. POSTOPERATIVE DIAGNOSIS: Screening colonoscopy. PROCEDURE: Total colonoscopy. ANESTHESIA: Conscious sedation with IV Versed and fentanyl. SPECIMEN: None. OPERATIVE FINDINGS: Normal colonoscopy. RECOMMENDATION: Followup colonoscopy in 10 years. INDICATION FOR PROCEDURE: This 58-year-old female has had a prior colonoscopy that was normal. It is over 10 years ago. She re-presents for screening colonoscopy. PROCEDURE IN DETAIL: After adequate preparation, a colonoscope was inserted into the rectum. This was passed all the way to the cecum. This patient use twice as much medication as normal. She was very tolerant to any kind of medication. However, I was able to get to the right side of the colon without difficulty and the bowel prep was very good. On withdrawal of the scope, a good examination of the colon was accomplished. She has no masses, polyps, bleeding sites, colitis, or diverticula. Anal and rectal examination were normal. Air was suctioned from the colon, and the scope removed. [facility] /[id number] cc: [facility]
== END 2019-01-20 10:36 | disposition home or self-care (01) ==
LOC: DL.ENDO 08:01
PROVIDERS: ATTEND Surgery
DX: Z12.11 Encounter for screening for malignant neoplasm of colon (principal); I10 Essential (primary) hypertension; E78.5 Hyperlipidemia, unspecified; F41.9 Anxiety disorder, unspecified; F32.9 Major depressive disorder, single episode, unspecified; G47.30 Sleep apnea, unspecified; Z87.891 Personal history of nicotine dependence; Z86.79 Personal history of other diseases of the circulatory system; Z88.5 Allergy status to narcotic agent; Z88.8 Allergy status to other drugs, medicaments and biological substances
CPT/HCPCS: G0121; J2250; J3010; J7042

== ENCOUNTER 2020-04-12 21:19 | Emergency (ER) | payer MEDICARE, OTHER ==
[2020-04-12 21:39] VITALS: BP 172/92; PULSE 110
[2020-04-12] MEDS ORDERED: Butorphanol 2 MG/ML SDV IM ONE (22:03)
[2020-04-12] MEDS ORDERED: Promethazine 25 MG/ML SDV IM ONE (22:04)
--- NOTE | 2020-04-12 22:19 | EDM.PDOC ---
ED HPI GENERAL MEDICAL PROBLEM - General Chief Complaint: Headache Stated Complaint: PT SAYS SEVER MIGRAINE FOR 9 [id number] Time Seen by Provider: 04/12/20 21:55 Source of Information: Reports: Patient, RN History Limitations: Reports: No Limitations - History of Present Illness INITIAL COMMENTS - FREE TEXT/NARRATIVE: 59-year-old with a history of migraines who presents to the ER with complaints of having migraines in the last 9 days. The patient reports she has taken ibuprofen and Tylenol with no relief. She cannot take Imitrex because of a history of a brain aneurysm. She states she has tried pushing fluids, resting, taking hydrocodone with no relief. She reports mild nausea but no vomiting. She also reports photophobia. Denies any recent head trauma, injury or fall. States she usually comes to the ER and gets Dilaudid for relief. She has been seen by a neurologist for many years and has been told there is nothing can do for her migraines. No modifying or alleviating factors. Treatments SENIOR ANALYST: Reports: Acetaminophen, Other Medication(s) Left Frontal Headache Pain Score (Numeric/FACES): 10 - Related Data Allergies Allergy/AdvReac Type Severity Reaction Status Date / Time codeine Allergy Delusions Verified 04/12/20 21:27 sumatriptan [From Imitrex] Allergy Other Verified 04/12/20 21:27 sumatriptan succinate Allergy Other Verified 04/12/20 21:27 [From Imitrex] topiramate Allergy Other Verified 04/12/20 21:27 Home Meds: Home Meds ClonazePAM [KlonoPIN] 1 mg PO BID 08/28/15 [History] Gabapentin [Neurontin] 300 mg PO TID 08/28/15 [History] Hydrocodone/Acetaminophen [Hydrocodon-Acetaminophn 10-325] 1 tab PO Q8HR PRN 08/28/15 [History] traZODone 300 mg PO BEDTIME 08/28/15 [History] Loratadine 10 mg PO DAILY 08/29/15 [History] Promethazine [Phenergan] 25 mg PO Q6HR PRN 08/29/15 [History] Albuterol Sulfate [Proair Hfa] 2 puff INH Q4H PRN 11/16/18 [History] DULoxetine [Cymbalta] 60 mg PO DAILY 11/16/18 [History] QUEtiapine Fumarate [Quetiapine Fumarate ER] 100 mg PO BEDTIME 11/16/18 [History] Tolterodine [Detrol] 2 mg PO DAILY 11/16/18 [History] polyethylene glycoL 3350 [MiraLAX] 17 gram PO DAILY PRN 11/16/18 [History] Prazosin HCl [Prazosin] 2 mg PO BEDTIME 01/18/19 [History] Past Medical History HEENT History: Reports: Impaired Vision Cardiovascular History: Reports: None Respiratory History: Reports: COPD, Sleep Apnea, Other (See Below) Other Respiratory History: Night hypoxia. She is on a continuous O2 at 3 LPM via [place] Gastrointestinal History: Reports: Chronic Constipation Genitourinary History: Reports: None [employer] OPERATOR History: Reports: Musculoskeletal History: Reports: Back Pain, Chronic Neurological History: Reports: Cerebral Aneurysms, Migraines Psychiatric History: Reports: Anxiety, Depression, PTSD Endocrine/Metabolic History: Reports: None Hematologic History: Reports: Anemia, B12 Deficiency Immunologic History: Reports: None Oncologic (Cancer) History: Reports: None Dermatologic History: Reports: None - Infectious Disease History Infectious Disease History: Reports: Other (See Below) Other Infectious Disease History: unknown - Past Surgical History Head Surgeries/Procedures: Reports: None HEENT Surgical History: Reports: Cataract Surgery, Naso-Sinus Surgery Cardiovascular Surgical History: Reports: None GI Surgical History: Reports: Appendectomy Female Surgical History: Reports: Hysterectomy Musculoskeletal Surgical History: Reports: Shoulder Surgery Social & Family History - Family History Family Medical History: Noncontributory - Tobacco Use Smoking Status *Q: Unknown Ever Smoked Second Hand Smoke Exposure: No - Caffeine Use Caffeine Use: Reports: Soda Other Caffeine Use: diet mt dew - Recreational Drug Use Recreational Drug Use: No ED ROS GENERAL - Review of Systems Review Of Systems: Comprehensive ROS is negative, except as noted in HPI. - Physical Exam Exam: See Below Exam Limited By: No Limitations General Appearance: Alert, Mild Distress Eye Exam: Bilateral Eye: PERRL Ears: Normal External Exam, Normal Canal, Hearing Loss (bilaterally, wearing hearing aids.) Nose: Normal Inspection, Normal Mucosa Throat/Mouth: Normal Oropharynx, Normal Voice, No Airway Compromise Head Exam: Atraumatic, Normocephalic Neck: Normal Inspection, Supple, Non-Tender, Full Range of Motion Respiratory/Chest: No Respiratory Distress, Lungs Clear, Normal Breath Sounds, No Accessory Muscle Use, Chest Non-Tender Cardiovascular: Regular Rate, Rhythm, No Murmur, Tachycardia GI/Abdominal: Normal Bowel Sounds, Soft, Non-Tender, No Organomegaly, No Distention, No Abnormal Bruit, No Mass Neuro Exam (Abbreviated): Oriented, CN II-XII Intact, Normal Gait Psychiatric: Anxious Skin Exam: Warm Course - Vital Signs Last Recorded V/S: Last Vital Signs Temp 97.3 F 04/12/20 21:34 Pulse 110 H 04/12/20 21:34 Resp 16 04/12/20 21:34 BP 172/92 H 04/12/20 21:34 Pulse Ox 95 04/12/20 21:34 - Orders/Labs/Meds Meds: Medications Discontinued Medications Generic Name Dose Route Start Last Admin Trade Name Joyce PRN Reason Stop Dose Admin Butorphanol Tartrate 2 mg 04/12/20 22:03 04/12/20 22:13 Stadol IM 04/12/20 22:04 2 mg ONETIME ONE Administration Promethazine HCl 25 mg 04/12/20 22:04 04/12/20 22:12 Phenergan IM 04/12/20 22:05 25 mg ONETIME ONE Administration - Re-Assessments/Exams Free Text/Narrative Re-Assessment/Exam: 59-year-old female who presents to the ER with a 9 days complaint of migraine. Has tried all her medications at home with no relief. examination findings in the ER was reviewed with the patient. She was given Stadol 2 mg with Phenergan 25 mg with relief. Patient requested discharge home. Departure - Departure Time of Disposition: 22:19 Disposition: Home, Self-Care 01 Condition: Good, Fair Clinical Impression: Migraine - Discharge Information Instructions: Recurrent Migraine Headache, [id number] Forms: ED Department Discharge Additional Instructions: Encouarged patient to continue taking medications as prescribed. recommended pushing fluids and resting. Follow up with PCP. Sepsis Event Note (ED) - Evaluation Sepsis Screening Result: No Definite Risk - Focused Exam Vital Signs: Vital Signs Temp Pulse Resp BP Pulse Ox 04/12/20 21:34 97.3 F 110 H 16 172/92 H 95
== END 2020-04-12 22:37 | disposition home or self-care (01) ==
LOC: DL.ED 21:19
DX: G43.909 Migraine, unspecified, not intractable, without status migrainosus (principal); J44.9 Chronic obstructive pulmonary disease, unspecified; F41.9 Anxiety disorder, unspecified; F32.9 Major depressive disorder, single episode, unspecified; Z79.899 Other long term (current) drug therapy; Z88.5 Allergy status to narcotic agent; Z88.8 Allergy status to other drugs, medicaments and biological substances
CPT/HCPCS: 96372; 99283; J0595; J2550

== ENCOUNTER 2021-10-02 09:49 | Emergency (ER) | payer MEDICARE, OTHER ==
[2021-10-02 10:40] VITALS: BP 143/78; PULSE 93
[2021-10-02 10:55] LABS: CORONAVIRUS COVID-19 NAA POSITIVE (NEGATIVE)
== END 2021-10-02 12:23 | disposition home or self-care (01) ==
LOC: DL.ED 09:49
DX: U07.1 COVID-19 (principal); J12.82 Pneumonia due to coronavirus disease 2019; H60.91 Unspecified otitis externa, right ear; H72.91 Unspecified perforation of tympanic membrane, right ear; J44.9 Chronic obstructive pulmonary disease, unspecified; I10 Essential (primary) hypertension; Z88.5 Allergy status to narcotic agent; Z88.8 Allergy status to other drugs, medicaments and biological substances; Z79.899 Other long term (current) drug therapy; Z87.891 Personal history of nicotine dependence
CPT/HCPCS: 0240U; 71045; 99283-25

== ENCOUNTER 2022-11-26 17:15 | Emergency (ER) | payer OTHER, MEDICARE ==
[2022-11-26] MEDS ORDERED: Sodium Chloride 0.9% 10 ML Syringe FLUSH PRN ×2 (17:32→17:48)
[2022-11-26] MEDS ORDERED: Sodium Chloride 0.9% 1,000 ML IV ONE ×3 (17:33→18:17)
[2022-11-26] MEDS ORDERED: Acetaminophen 650 MG Supp RECTAL STA (17:48)
[2022-11-26] MEDS ORDERED: Ketorolac 30 MG/ML SDV IVPUSH ONE (17:48)
[2022-11-26] MEDS ORDERED: Piperacillin/Tazobactam 4.5 GM in Sodium Chloride 0.9% 100 ML IV ONE (18:04)
[2022-11-26 18:17] LABS: ANION GAP 15.6 mEq/L (7-13); CHLORIDE,CL 101 mmol/L (98-107); SODIUM,NA 139 mmol/L (136-145)
[2022-11-26 18:18] LABS: ESTIMATED GFR 46 mL/min (>=60)
[2022-11-26 18:21] LABS: O2 DELIVERY DEVICE NASAL CANNULA
[2022-11-26 18:22] LABS: O2 SATURATION VENOUS 31 % (60-80); PCO2 VENOUS 41 mmHg (41-51); PH,VENOUS 7.34 (7.31-7.41); PO2 VENOUS 21 mmHg (35-42)
[2022-11-26 18:23] LABS: BASE EXCESS VENOUS -4 mmol/l ((-2)-(+3)); BICARBONATE,VENOUS 22 mmol/l (19-25)
[2022-11-26 18:27] LABS: CORONAVIRUS COVID-19 NAA NEGATIVE (NEGATIVE); RESPIRATORY SYNCYTIAL VIR NAA NEGATIVE (NEGATIVE)
[2022-11-26 19:01] VITALS: BP 128/62; PULSE 100
== END 2022-11-26 21:22 ==
LOC: DL.ED 17:15
DX: A41.9 Sepsis, unspecified organism (principal); N39.0 Urinary tract infection, site not specified; J44.9 Chronic obstructive pulmonary disease, unspecified; Z88.5 Allergy status to narcotic agent; Z88.8 Allergy status to other drugs, medicaments and biological substances; Z20.822 Contact with and (suspected) exposure to COVID-19
CPT/HCPCS: 0241U; 36415; 71045; 80053; 81001; 82140; 82803; 83605; 83735; 84443; 85025; 86140; 87040; 87086; 87088; 87186; 93005; 93010; 96365; 96367; 96375; 99285; 99285-25; A9270-GY; J1885; J2543; J3370; J3490; J7030; J7040

== ENCOUNTER 2022-12-01 15:31 | Emergency (ER) | payer MEDICARE, OTHER ==
[2022-12-01] MEDS ORDERED: Sodium Chloride 0.9% 10 ML Syringe FLUSH PRN (15:34)
[2022-12-01 16:07] LABS: O2 DELIVERY DEVICE ROOM AIR; O2 SATURATION VENOUS 85 % (60-80); PO2 VENOUS 51 mmHg (35-42)
[2022-12-01 16:08] LABS: BASE EXCESS VENOUS -2 mmol/l ((-2)-(+3)); BICARBONATE,VENOUS 23 mmol/l (19-25); PCO2 VENOUS 39 mmHg (41-51); PH,VENOUS 7.38 (7.31-7.41)
[2022-12-01] MEDS ORDERED: GENTAMICIN IV SCH (16:15)
[2022-12-01] MEDS ORDERED: SODIUM CHLORIDE 0.9% IV SCH (16:15)
[2022-12-01 16:17] LABS: PTT,PARTIAL THROMBOPLSTIN TIME 25.6 SEC (22.0-34.0)
[2022-12-01 16:19] LABS: ANION GAP 17.1 mEq/L (7-13)
[2022-12-01] MEDS ORDERED: Iopamidol 755 Mg/ML 100 ML Bottle IVPUSH ONE (16:22)
[2022-12-01 16:25] VITALS: BP 109/60; PULSE 86
[2022-12-01 17:04] LABS: CORONAVIRUS COVID-19 NAA NEGATIVE (NEGATIVE)
[2022-12-01] MEDS ORDERED: Heparin Sodium 5,000 Units/ML Vial IVPUSH ONE (17:08)
[2022-12-01] MEDS ORDERED: Heparin Sodium/0.45% NaCl 25,000 UNITS/500 ML BAG IV SCH (17:15)
[2022-12-01 17:20] LABS: AMPHETAMINES,URINE NEGATIVE (NEGATIVE); BARBITURATES,URINE NEGATIVE (NEGATIVE); BENZODIAZEPINE,URINE NEGATIVE (NEGATIVE); MDMA (ECSTASY), URINE NEGATIVE (NEGATIVE); METHADONE,URINE NEGATIVE (NEGATIVE); METHAMPHETAMINES,URINE NEGATIVE (NEGATIVE); OPIATES,URINE POSITIVE (NEGATIVE); OXYCODONE,URINE NEGATIVE (NEGATIVE); PHENCYCLIDINE,URINE NEGATIVE (NEGATIVE); TCA,URINE NEGATIVE (NEGATIVE)
== END 2022-12-01 18:05 ==
LOC: DL.ED 15:31
DX: A41.9 Sepsis, unspecified organism (principal); J18.9 Pneumonia, unspecified organism; I26.99 Other pulmonary embolism without acute cor pulmonale; R09.02 Hypoxemia; J44.9 Chronic obstructive pulmonary disease, unspecified; Z88.5 Allergy status to narcotic agent; Z88.8 Allergy status to other drugs, medicaments and biological substances; Z79.899 Other long term (current) drug therapy; Z86.16 Personal history of COVID-19; Z20.822 Contact with and (suspected) exposure to COVID-19
CPT/HCPCS: 0240U; 36415; 71045; 71260; 80053; 80305; 81001; 82803; 83605; 83735; 83880; 84145; 84484; 85025; 85379; 85610; 85730; 86140; 93005; 96365; 96367; 96368; 96375; 99285; J1644; J3370; J3490; J7040; Q9967

== ENCOUNTER 2024-10-08 19:26 | Emergency (ER) | payer MEDICARE, OTHER ==
[2024-10-08 20:01] VITALS: BP 147/77; PULSE 77
[2024-10-08] MEDS: diphenhydrAMINE 25 MG Tab PO ONE (20:04)
[2024-10-08] MEDS: Promethazine 25 MG Tab PO ONE (20:05)
[2024-10-08] MEDS: traMADol 50 MG Tab PO ONE (20:05)
== END 2024-10-08 20:34 | disposition home or self-care (01) ==
LOC: DL.ED 19:26
DX: G43.909 Migraine, unspecified, not intractable, without status migrainosus (principal); J44.9 Chronic obstructive pulmonary disease, unspecified; Z88.8 Allergy status to other drugs, medicaments and biological substances; Z79.899 Other long term (current) drug therapy; Z86.16 Personal history of COVID-19; Z90.49 Acquired absence of other specified parts of digestive tract
CPT/HCPCS: 87428-QW; 99283; A9270-GY; Q0169